=== PATIENT | male | born 1960 | race Caucasian/White ===

== ENCOUNTER 2016-05-19 15:12 | Emergency (ER) | payer MEDICARE, MEDICAID ==
[2016-05-19 15:29] VITALS: BP 117/76
[2016-05-19] MEDS ORDERED: HYDROmorphone 1 MG/ML Syringe IM ONE (16:42)
--- NOTE | 2016-05-19 16:45 | EDM.PDOC ---
ED HPI LOWER BACK PAIN/INJURY - General Chief Complaint: Back Pain or Injury Stated Complaint: LOWER BACK PAIN Time Seen by Provider: 05/19/16 16:36 Source: Reports: Patient, RN notes reviewed History Limitations: Reports: No limitations - History of Present Illness INITIAL COMMENTS - FREE TEXT/NARRATIVE: 55-year-old gentleman presents emergency department today complaining of low back pain, he does have a long history of chronic back pain uses a combination of ibuprofen and morphine to control it he denies any specific trauma states his exacerbations can happen with something as simple as bending over. Denies any loss of bowel or bladder - Related Data Allergies/ADRs: Allergies Allergy/AdvReac Type Severity Reaction Status Date / Time No Known Allergies Allergy Verified 05/19/16 15:32 Home Meds: Home Meds Carbidopa/Levodopa [Carbidopa-Levo ER 25-100] 05/19/16 [History] Gabapentin [Gabapentin] 05/19/16 [History] LORazepam [Take Home: LORazepam 0.5 MG, 2 Tab Pack] 05/19/16 [History] Morphine Sulfate [Morphine Sulfate ER] 05/19/16 [History] Omeprazole 05/19/16 [History] busPIRone HCl [Buspirone HCl] 05/19/16 [History] lamoTRIgine [lamoTRIgine] 05/19/16 [History] risperiDONE [risperiDONE] 05/19/16 [History] traZODone 05/19/16 [History] Past Medical History Musculoskeletal History: Reports: Back pain, chronic Neurological History: Reports: Parkinson's - Past Surgical History GI Surgical History: Reports: Appendectomy, Hernia, inguinal, Hernia repair/ other Social & Family History - Tobacco Use Smoking Status *Q: Current Every Day Smoker Years of Tobacco use: 37 Packs/Tins Daily: 1.5 ED ROS GENERAL - Review of Systems Review Of Systems: See Below Constitutional: Reports: no symptoms Respiratory: Reports: No Symptoms Cardiovascular: Reports: No symptoms GI/Abdominal: Reports: No symptoms Musculoskeletal: Reports: back pain ED EXAM,LOWER BACK PAIN/INJURY - Physical Exam Exam: See Below Exam Limited By: No limitations General Appearance: alert, mild distress Back Exam: normal inspection, decreased range of motion, muscle spasm, paraspinal tenderness. No: CVA tenderness (R), CVA tenderness (L), vertebral tenderness Course - Vital Signs Last Recorded V/S: Last Vital Signs Temp 97.5 F 05/19/16 15:42 Pulse 87 05/19/16 15:42 Resp 16 05/19/16 15:42 BP 117/76 05/19/16 15:42 Pulse Ox 92 L 05/19/16 15:42 - Orders/Labs/Meds Meds: Medications Discontinued Medications Generic Name Dose Route Start Last Admin Trade Name Shayne PRN Reason Stop Dose Admin Carisoprodol 350 mg 05/19/16 16:42 05/19/16 16:48 Soma PO 05/19/16 16:43 350 mg ONETIME ONE Administration Hydromorphone HCl 1 mg 05/19/16 16:42 05/19/16 16:49 Dilaudid IM 05/19/16 16:43 1 mg ONETIME ONE Administration Departure - Departure Time of Disposition: 17:46 Disposition: Home, Self-Care 01 Condition: good Clinical Impression: Back pain Qualifiers: Back pain location: low back pain Chronicity: chronic Back pain laterality: right Sciatica presence: without sciatica Qualified Code(s): M54.5 - Low back pain; G89.29 - Other chronic pain Forms: ED Department Discharge Additional Instructions: Continue use combination ibuprofen and morphine as needed for pain control, try the soma as needed for muscle relaxants, Please followup with your primary care provider in 3-5 days if not better, please call return to the emergency department with worsening of symptoms. - Assessment/Plan Plan: Assessment Acuity = acute on chronic Site and laterality = exacerbation low back pain Etiology = unclear etiology Manifestations = none Location of injury = home Lab values = none Plan Get some relief with the combination soma and hydromorphone provided he does have morphine at home I did provide him a prescription for soma total #20 tablets from followup primary care and treated 5 days for reevaluation Patient was in agreement with the plan all questions were answered, they were instructed to return to the emergency department or call for worsening symptoms. This note was dictated using [employer] voice recognition software please call with any questions.
== END 2016-05-19 17:58 | disposition home or self-care (01) ==
LOC: JP.ED 15:12
DX: M54.5 Low back pain (principal); G89.29 Other chronic pain; G20 Parkinson's disease; F17.210 Nicotine dependence, cigarettes, uncomplicated; Z79.899 Other long term (current) drug therapy; Z90.49 Acquired absence of other specified parts of digestive tract; Z98.890 Other specified postprocedural states
CPT/HCPCS: 96372; 99283; A9270; J1170

== ENCOUNTER 2016-08-04 16:49 | Emergency (ER) | payer MEDICARE, MEDICAID ==
[2016-08-04 17:08] VITALS: BP 141/82
[2016-08-04] MEDS ORDERED: Ketorolac 60 MG/2 ML SDV IM ONE (17:28)
--- NOTE | 2016-08-04 17:31 | EDM.PDOC ---
ED HPI GENERAL MEDICAL PROBLEM - General Chief Complaint: ENT Problem Stated Complaint: INFECTED TOOTH Time Seen by Provider: 08/04/16 17:24 Source of Information: Reports: Patient, RN Notes Reviewed History Limitations: Reports: No Limitations - History of Present Illness INITIAL COMMENTS - FREE TEXT/NARRATIVE: 55-year-old gentleman presents emergency department day complaint of dental pain , he states is been progressively getting worse over the last week he has not had any fevers or difficulty swallowing Left Lower Face Pain Score (Numeric/FACES): 10 - Related Data Allergies Allergy/AdvReac Type Severity Reaction Status Date / Time No Known Allergies Allergy Verified 05/19/16 15:32 Home Meds: Home Meds Carbidopa/Levodopa [Carbidopa-Levo ER 25-100] 1 tab PO BID 05/19/16 [History] Gabapentin [Gabapentin] 400 mg PO TID 05/19/16 [History] LORazepam [Take Home: LORazepam 0.5 MG, 2 Tab Pack] 1 mg PO ASDIRECTED PRN 05/19 [History] Morphine Sulfate [Morphine Sulfate ER] 60 mg PO BID 05/19/16 [History] Omeprazole 40 mg PO DAILY 05/19/16 [History] busPIRone HCl [Buspirone HCl] 05/19/16 [History] lamoTRIgine [lamoTRIgine] 200 mg PO DAILY 05/19/16 [History] risperiDONE [risperiDONE] 0.5 mg PO TID 05/19/16 [History] traZODone 100 mg PO BEDTIME 05/19/16 [History] Past Medical History HEENT History: Reports: Other (See Below) Other HEENT History: tooth decay Musculoskeletal History: Reports: Back Pain, Chronic Neurological History: Reports: Parkinson's - Past Surgical History GI Surgical History: Reports: Appendectomy, Hernia, Inguinal, Hernia Repair/ Other Social & Family History - Tobacco Use Smoking Status *Q: Heavy Tobacco Smoker Years of Tobacco use: 40 Packs/Tins Daily: 1 - Caffeine Use Caffeine Use: Reports: Coffee, Soda - Recreational Drug Use Recreational Drug Use: No ED ROS ENT - Review of Systems Review Of Systems: See Below Constitutional: Reports: No Symptoms HEENT: Reports: Dental Pain Respiratory: Reports: No Symptoms Cardiovascular: Reports: No Symptoms GI/Abdominal: Reports: No Symptoms ED EXAM, ENT - Physical Exam Exam: See Below Text/Narrative:: Mouth mucosa is moist and pink there is no erythema or exudate noted in soft palate tongue is midline uvula is midline, dentition is poor he does have multiple caries he is exquisitely tender posterior aspect left side Exam Limited By: No Limitations General Appearance: Alert, WD/WN, No Apparent Distress Neck: Normal Inspection, Supple, Non-Tender, Full Range of Motion Respiratory/Chest: No Respiratory Distress, Lungs Clear, Normal Breath Sounds, No Accessory Muscle Use Cardiovascular: Regular Rate, Rhythm, No Murmur Course - Vital Signs Last Recorded V/S: Last Vital Signs Temp 97.7 F 08/04/16 17:12 Pulse 86 08/04/16 17:12 Resp 14 08/04/16 17:12 BP 141/82 H 08/04/16 17:12 Pulse Ox 95 08/04/16 17:12 Departure - Departure Time of Disposition: 17:30 Disposition: Home, Self-Care 01 Condition: Good Clinical Impression: Pain, dental - Discharge Information Forms: ED Department Discharge Additional Instructions: Take full course of antibiotics, please follow-up with the dental clinic tomorrow morning at 8:15 - Assessment/Plan Plan: Assessment Acuity = acute Site and laterality = dental abscess molar #16 Etiology = secondary to dental caries Manifestations = pain Location of injury = home Lab values = none Plan Prescription written for clindamycin 300 mg 4 times a day 10 days referral written to [facility] Patient was in agreement with the plan all questions were answered, they were instructed to return to the emergency department or call for worsening symptoms. This note was dictated using [employer] voice recognition software please call with any questions.
== END 2016-08-04 17:43 | disposition home or self-care (01) ==
LOC: JP.ED 16:49
DX: K08.89 Other specified disorders of teeth and supporting structures (principal); G20 Parkinson's disease; F17.210 Nicotine dependence, cigarettes, uncomplicated; Z90.89 Acquired absence of other organs; Z98.890 Other specified postprocedural states; Z79.899 Other long term (current) drug therapy
CPT/HCPCS: 96372; 99283; J1885

== ENCOUNTER 2017-03-20 08:54 | Emergency (ER) | payer MEDICARE, MEDICAID ==
[2017-03-20 09:07] VITALS: BP 116/76
[2017-03-20] MEDS ORDERED: HYDROmorphone 1 MG/ML Syringe IM ONE (09:31)
--- NOTE | 2017-03-20 09:41 | EDM.PDOC ---
ED HPI GENERAL MEDICAL PROBLEM - General Chief Complaint: ENT Problem Stated Complaint: TOOTH PAIN ON RIGHT SIDE Time Seen by Provider: 03/20/17 09:25 Source of Information: Reports: Patient, Old Records, RN History Limitations: Reports: No Limitations - History of Present Illness INITIAL COMMENTS - FREE TEXT/NARRATIVE: 56 yo male here with R facial pain. Has had several teeth extracted recently with more to be extracted as soon as he can come up with the money. Is currently on clindamycin and tramadol. The tramadol is not controlling his pain. No def'n recent fevers or facial swelling. Pain is in the R maxillary area of his mouth/face. Pain radiates up to his scalp on the R side. Is a smoker. Does not have a current appt scheduled with his dentist or Dr. Hayes. Here with his ? . Onset: Gradual Onset Date: 03/18/17 Duration: Day(s):, Getting Worse Location: Reports: Face (R side) Quality: Reports: Ache, Sharp Severity: Moderate Improves with: Reports: None Worsens with: Reports: Other (? time) Context: Reports: Other (Bad teeth, recent extractions, dental neglect.) Associated Symptoms: Reports: No Other Symptoms Treatments ACCOUNT MANAGER EDUCATION: Reports: Other (see below) (clindamycin, tramadol) - Related Data Allergies Allergy/AdvReac Type Severity Reaction Status Date / Time No Known Allergies Allergy Verified 03/20/17 09:06 Home Meds: Home Meds Carbidopa/Levodopa [Carbidopa-Levo ER 25-100] 1 tab PO BID 05/19/16 [History] Gabapentin [Gabapentin] 400 mg PO TID 05/19/16 [History] LORazepam [Take Home: LORazepam 0.5 MG, 2 Tab Pack] 1 mg PO ASDIRECTED PRN 05/19 [History] Morphine Sulfate [Morphine Sulfate ER] 60 mg PO BID 05/19/16 [History] Omeprazole 40 mg PO DAILY 05/19/16 [History] busPIRone HCl [Buspirone HCl] 1 tab PO BID 05/19/16 [History] lamoTRIgine [lamoTRIgine] 200 mg PO DAILY 05/19/16 [History] risperiDONE [risperiDONE] 0.5 mg PO TID 05/19/16 [History] traZODone 100 mg PO BEDTIME 05/19/16 [History] Clindamycin HCl [Clindamycin HCl] 03/20/17 [History] Hydrocodone/Acetaminophen [[place] 5-325] 1 - 2 tab PO Q4H PRN #14 tablet [Rx] traMADol HCl [Tramadol HCl] 03/20/17 [History] Past Medical History - Past Health History Medical/Surgical History: Denies Medical/Surgical History HEENT History: Reports: Cataract, Other (See Below) Other HEENT History: tooth decay Musculoskeletal History: Reports: Back Pain, Chronic Neurological History: Reports: Parkinson's - Past Surgical History GI Surgical History: Reports: Appendectomy, Hernia, Inguinal, Hernia Repair/ Other Social & Family History - Tobacco Use Smoking Status *Q: Current Every Day Smoker Years of Tobacco use: 40 Packs/Tins Daily: 1.5 - Caffeine Use Caffeine Use: Reports: Coffee, Soda - Recreational Drug Use Recreational Drug Use: No ED ROS ENT - Review of Systems Review Of Systems: See Below Constitutional: Reports: No Symptoms HEENT: Reports: Dental Pain Respiratory: Reports: No Symptoms Cardiovascular: Reports: No Symptoms GI/Abdominal: Reports: No Symptoms : Reports: No Symptoms Musculoskeletal: Reports: No Symptoms Skin: Reports: No Symptoms Neurological: Reports: No Symptoms Psychiatric: Reports: No Symptoms ED EXAM, ENT - Physical Exam Exam: See Below Exam Limited By: No Limitations General Appearance: Alert, WD/WN, No Apparent Distress Eye Exam: Bilateral Eye: Normal Inspection Ears: Normal External Exam, Normal Canal, Hearing Grossly Normal, Normal TMs Nose: Normal Inspection, Normal Mucousa, No Blood Mouth/Throat: Normal Lips, Normal Oropharynx, Dental Tenderness, Other (Poor oral hygiene, strong odor of tobacco, teeth stained with tobacco). No: Throat Swelling, Tongue Swelling, Tonsillar Erythema, Tonsillar Exudates, Tonsillar Swelling, Uvular Deviation, Uvular Edema Head: Atraumatic, Normocephalic. No: Facial Swelling Neck: Normal Inspection, Supple, Non-Tender Respiratory/Chest: No Respiratory Distress, Lungs Clear, Normal Breath Sounds, No Accessory Muscle Use Cardiovascular: Regular Rate, Rhythm, No Edema Back: Normal Inspection Extremities: Normal Inspection Neurological: Alert, Oriented, CN II-XII Intact, Normal Cognition, No Motor/ Sensory Deficits Psychiatric: Normal Affect, Normal Mood Skin: Warm, Dry, Intact, Normal Color, No Rash Lymphatic: No Adenopathy Course - Vital Signs Last Recorded V/S: Last Vital Signs Temp 35.7 C 03/20/17 09:13 Pulse 86 03/20/17 09:13 Resp 20 03/20/17 09:13 BP 116/76 03/20/17 09:13 Pulse Ox 97 03/20/17 09:13 - Orders/Labs/Meds Meds: Medications Discontinued Medications Generic Name Dose Route Start Last Admin Trade Name Shayne PRN Reason Stop Dose Admin Hydromorphone HCl 1 mg 03/20/17 09:31 Dilaudid IM 03/20/17 09:32 ONETIME ONE Departure - Departure Time of Disposition: 09:45 Disposition: Home, Self-Care 01 Condition: Good Clinical Impression: Pain, dental - Discharge Information Prescriptions: Hydrocodone/Acetaminophen [[place] 5-325] 1 - 2 tab PO Q4H PRN #14 tablet PRN Reason: Pain Referrals: PCP,None [Primary Care Provider] - Forms: ED Department Discharge
== END 2017-03-20 09:51 | disposition home or self-care (01) ==
LOC: JP.ED 08:54
DX: K08.89 Other specified disorders of teeth and supporting structures (principal); F17.210 Nicotine dependence, cigarettes, uncomplicated; G20 Parkinson's disease; Z79.899 Other long term (current) drug therapy
CPT/HCPCS: 96372; 99283; J1170